=== PATIENT | male | born 1940 | race Caucasian/White ===

== ENCOUNTER → 2016-04-05 | Outpatient (CLI) | payer OTHER ==
--- NOTE | 2016-04-05 18:02 | DX ---
Bilateral hip series 2 views 1145 hours. History: Hip pain more prominent on the left. Findings: There is no significant hip joint space narrowing on either side. No osteophytes are seen a bout the femoral head. The SI joints and symphysis are normal in appearance. There are no lytic or sc lerotic osseous lesions. Phleboliths are noted in the left lower pelvis. Soft tissues are unremarkabl e. Impression: 1. Relatively normal bilateral hip series.
== END ==
LOC: FIMAGING 11:41
PROVIDERS: ATTEND Family Medicine
DX: M25.552 Pain in left hip (principal)